=== PATIENT | male | born 1950 | race Two or more races ===

== ENCOUNTER 2017-11-22 13:12 | Inpatient (IN) | payer OTHER, MEDICAID ==
[~2017-11-22] VITALS: Ht 172.7 cm; Wt 96.2 kg
[~2017-11-22 13:12] MED LIST: LEVO500T75 PO; TAMS-12 PO
--- NOTE | 2017-11-22 13:15 | NUR ---
AAOX3, [id number] FROM HOME,NEIGHBOR CALLED 911. PT WAS FOUND LYING IN THE BATHROOM UNKNOWN DOWNTIME C/O BILATERAL HIP,BILATERAL KNEE,RT ELBOW PAIN, LEFT ARM PAIN. RR IS EVEN AND UNLABORED WITH NAD NOTED. SKIN IS WARM AND DRY. AWAITING MD FOR EVAL.
[2017-11-22] MEDS ORDERED: CEFTRIAXONE 1GM BAG (ER ONLY) 1 GM/50 ML PIGGYBACK IV ONE (13:30)
[2017-11-22] MEDS ORDERED: IV NS 0.9% 1,000 ML BAG IV ONE (13:30)
[2017-11-22] MEDS ORDERED: ACETAMINOPHEN ES 500 MG TABLET ONE (13:47)
[2017-11-22 13:48] LABS: BASOPHILS # (AUTO) 0.7 /CMM (0.0-0.2); BASOPHILS % (AUTO) 4.3 % (0.0-2.0); HEMATOCRIT 50 % (39-51); HEMOGLOBIN 16.7 g/dL (13.5-17.5); LYMPHOCYTES # (AUTO) 0.8 /CMM (0.8-4.8); LYMPHOCYTES % (AUTO) 4.8 % (20.0-44.0); MEAN CORPUSCULAR HEMOGLOBIN 31 PG (26.0-33.0); MEAN CORPUSCULAR HGB CONC 33 g/dl (31.0-36.0); MEAN CORPUSCULAR VOLUME 94 fL (80-96); MONOCYTES # (AUTO) 1.5 /CMM (0.1-1.30); MONOCYTES % (AUTO) 8.8 % (2.0-12.0); NEUTROPHILS # (AUTO) 14.2 /CMM (1.8-8.9); NEUTROPHILS % (AUTO) 82.1 % (43.0-81.0); PLATELET COUNT (AUTO) 215 /CMM (150-450); RDW COEFFICIENT OF VARIATION 11.8 (11.5-15.0); RED BLOOD CELL COUNT(AUTO) 5.39 MIL/uL (4.5-6.0); WHITE BLOOD COUNT (AUTO) 17.2 K/uL (4.3-11.0)
[2017-11-22 13:54] LABS: ALCOHOL, BLOOD 3 mg/dL (0-0)
[2017-11-22 13:58] LABS: ALANINE AMINOTRANSFERASE 75 U/L (12-78); ALBUMIN 3.8 g/dL (3.4-5.0); ALKALINE PHOSPHATASE 74 U/L (46-116); ASPARTATE AMINOTRANSFERASE 188 U/L (15-37); BILIRUBIN,DIRECT 0.1 mg/dL (0.0-0.2); BILIRUBIN,TOTAL 0.7 mg/dL (0.2-1.0); CALCIUM, SERUM 8.8 mg/dL (8.5-10.1); CARBON DIOXIDE 19 mmol/L (21-32); CHLORIDE 103 mmol/L (98-107); CREATININE 1.5 mg/dL (0.6-1.3); POTASSIUM 5.3 mmol/L (3.5-5.1); SODIUM SERUM 138 mmol/L (136-145); TOTAL PROTEIN, SERUM 7.6 g/dL (6.4-8.2); UREA NITROGEN, BLOOD 34 mg/dL (7-18)
--- NOTE | 2017-11-22 13:58 | NUR ---
PATIENT TRANSPORTED FOR CT VIA GURNEY.
[2017-11-22 14:00] LABS: GLUCOSE 461 mg/dL (74-106)
[2017-11-22 14:00] LABS: INR 0.88 (0.85-1.15)
[2017-11-22] MEDS ORDERED: ACETAMINOPHEN ES 500 MG TABLET PO ONE (14:00)
[2017-11-22] MEDS ORDERED: CEFTRIAXONE 1 G in IV NS 0.9% 50 ML IV ONE (14:00)
[2017-11-22 14:01] LABS: TROPONIN I < 0.017 ng/mL (0.00-0.056)
[2017-11-22 14:14] LABS: BAND % (MANUAL) 1 % (0.0-5.0); LYMPHOCYTES % (MANUAL) 2 % (16-48); MONOCYTES % (MANUAL) 6 % (0-11.0); NEUTROPHILS % (MANUAL) 91 (42-76)
[2017-11-22] MEDS ORDERED: GLIM4TAB2 PO (14:24)
[2017-11-22] MEDS ORDERED: ATOR20TA PO (14:24)
[2017-11-22] MEDS ORDERED: METF500T6 PO (14:24)
[2017-11-22] MEDS ORDERED: LOSA50TA21 PO (14:24)
[2017-11-22] MEDS ORDERED: METO-357 PO (14:24)
[2017-11-22] MEDS ORDERED: INSULIN REGULAR, HUMAN 100 UNIT/ML 10 ML VIAL ONE (14:25)
[2017-11-22] MEDS ORDERED: PROPOFOL 20 ML IV ONE (14:29)
[2017-11-22] MEDS ORDERED: INSULIN REGULAR, HUMAN 100 UNIT/ML 10 ML VIAL IV ONE (14:30)
[2017-11-22] MEDS ORDERED: PROPOFOL 200 MG/20 ML VIAL IV ONE (14:30)
--- NOTE | 2017-11-22 14:49 | NUR ---
XRAY- POST REDUCTION AT BS.
--- NOTE | 2017-11-22 14:53 | NUR ---
ROCEPHIN 1G --- DUPLICATE ORDER
[2017-11-22 15:00] LABS: APPEARANCE,URINE SL CLOUDY (CLEAR); BILIRUBIN,URINE NEGATIVE (NEGATIVE); BLOOD, URINE 3+ Ery/uL (NEGATIVE); COLOR,URINE DARK YELLO (YELLOW); KETONES,URINE 1+ (NEGATIVE); LEUKOCYTE ESTERASE ,URINE NEGATIVE (NEGATIVE); NITRITE, URINE NEGATIVE (NEGATIVE); PH,URINE 5.5 (5.0-8.0); PROTEIN,URINE 2+ mg/dl (NEGATIVE); UGLUCOSE 3+ mg/dL (NEGATIVE); UROBILINOGEN,URINE 0.2 EU/dL (0.2)
--- NOTE | 2017-11-22 15:10 | NUR ---
PAGED Jesus NGUYEN , AWAITING CALL BACK.
[2017-11-22] MEDS ORDERED: ONDANSETRON HCL/PF 4 MG/2 ML VIAL ONE (15:16)
[2017-11-22] MEDS ORDERED: PANTOPRAZOLE 40 MG VIAL ONE (15:16)
--- NOTE | 2017-11-22 15:28 | NUR ---
CALLED NURSING WAREHOUSE DRIVER AND REQUESTED A CHANTAL BED FOR THIS PT.
[2017-11-22] MEDS ORDERED: PANTOPRAZOLE 40 MG VIAL IV ONE (15:30)
[2017-11-22] MEDS ORDERED: ONDANSETRON HCL/PF - ER 4 MG/2 ML VIAL IV ONE (15:30)
[2017-11-22 15:33] LABS: BACTERIA,URINE None seen /HPF (None Seen); SQUAMOUS EPITHELIAL CELL,UR Few /HPF (None Seen); URINE AMORPHOUS URATE Many /HPF (None Seen); WBC,URINE 0-2 /HPF (0-3)
--- NOTE | 2017-11-22 15:51 | NUR ---
PT IS ASSIGNED TO CHANTAL RM#: [id number], DX: ENCEPHALOPATHY, LEFT HIP DISLOCATION, RENAL FAILURE, AND ACCEPTING MD: DR ANN.
--- NOTE | 2017-11-22 16:52 | NUR ---
REPORT GIVEN TO ISHAN ARELLANO FOR [facility] CHANTAL [id number]
[2017-11-22 17:25] VITALS: BP 155/83
--- NOTE | 2017-11-22 17:25 | NUR ---
RN NOTES RECEIVED PT FROM ER , A/OX4, ON 2L O2 N/C , RESPIRATION EVEN AND UNLABORED, NO SOB NOTED, ON TELE HR IN 100'S, ST , TANVI DRINING TO GRAVITY , L AC AND R FA G 18 IV SITES CLEAN , DRY INTACT. DR ANN PAGED AND NOTIFED REGARDING ADMISSION ORDERS. R AND L KNEE ABRASIONS NOTED, PT HAS LEFT BIG TOE WOUND , WOUND CONSULT ORDERED , SR UP x3, CALL LIGHT WITHIN EASY REACH, BED LOCKED AND IN LOWEST POSITION , CONTINUE TO MONITOR PT CLSOELY .
[2017-11-22 17:30] VITALS: BP 155/83
[2017-11-22] MEDS ORDERED: HYDROCODONE/APAP 5/325MG 1 EACH TABLET PO PRN (18:30)
--- NOTE | 2017-11-22 18:30 | NUR ---
RN NOTES LA=3.7 , DR ANN NOTIFED ,
[2017-11-22 18:36] LABS: CREATINE KINASE, TOTAL 36262 U/L (39-308)
[2017-11-22] MEDS ORDERED: FEE PK DOSING 1 MIN EA MC ONE (18:38)
[2017-11-22] MEDS ORDERED: ONDANSETRON HCL/PF 4 MG/2 ML VIAL IVP PRN (19:00)
[2017-11-22] MEDS ORDERED: ACETAMINOPHEN 325 MG TABLET PO PRN (19:00)
[2017-11-22] MEDS ORDERED: DEXTROSE 50%-WATER 50 ML DISP.SYRIN IV PRN (19:00)
[2017-11-22] MEDS ORDERED: VANCOMYCIN 1 GM in IV D5W 250 ML IV ONE (19:00)
[2017-11-22] MEDS ORDERED: LORAZEPAM INJ 2 MG/ML VIAL IVP PRN (19:00)
--- NOTE | 2017-11-22 19:00 | NUR ---
RN INITIAL NOTES RECEIVED THE PATIENT AWAKE ON BED, A/O X3. ON ROOM AIR, NO S/S OF RESP DISTRESS, SATURATING WELL. COMPLAINTS OF GENERALIZED ACHING PAIN, 9. PT IS SR/ST ON THE MONITOR, HR 100'S. TINAJERO CATH IN PLACE. LEFT AC 18G AND RIGHT FOREARM 18G, BOTH FLUSHED AND PATENT, NO S/S OF INFILTRATION/INFECTION, DRESSINGS CDI. WILL START ON IVF PER MD ORDER. BED LOW AND LOCKED, SIDERAILS UP, CALL LIGHT WITHIN REACH. WILL MONITOR
[2017-11-22] MEDS: IV NS 0.9% 1,000 ML IV PRN (19:32)
[2017-11-22] MEDS: MORPHINE SULFATE INJ 2 MG/ML DISP.SYRIN IV PRN ×2 (19:34→23:59)
[2017-11-22 20:00] VITALS: BP 124/83
[2017-11-22] MEDS: BLOOD SUGAR DIAGNOSTIC 1 EACH STRIP VI SCH (21:21)
[2017-11-22] MEDS: *INSULIN REGULAR(HUMULIN R)HUM 100 UNIT/ML VIAL SQ PRN (21:24)
[2017-11-23] VITALS: BP 112/78
[2017-11-23 04:00] VITALS: BP 127/73
[2017-11-23] MEDS: MORPHINE SULFATE INJ 2 MG/ML DISP.SYRIN IV PRN ×4 (04:04→21:54)
[2017-11-23 06:25] LABS: BASOPHILS % (AUTO) 0.2 % (0.0-2.0); EOSINOPHILS % (AUTO) 0.1 % (0.0-6.0); HEMATOCRIT 44 % (39-51); LYMPHOCYTES % (AUTO) 9.6 % (20.0-44.0); MEAN CORPUSCULAR HEMOGLOBIN 33 PG (26.0-33.0); MEAN CORPUSCULAR HGB CONC 34 g/dl (31.0-36.0); MEAN CORPUSCULAR VOLUME 95 fL (80-96); MONOCYTES # (AUTO) 1.1 /CMM (0.1-1.30); MONOCYTES % (AUTO) 10.3 % (2.0-12.0); NEUTROPHILS # (AUTO) 8.3 /CMM (1.8-8.9); NEUTROPHILS % (AUTO) 79.8 % (43.0-81.0); PLATELET COUNT (AUTO) 164 /CMM (150-450); RED BLOOD CELL COUNT(AUTO) 4.59 MIL/uL (4.5-6.0); WHITE BLOOD COUNT (AUTO) 10.4 K/uL (4.3-11.0)
[2017-11-23] MEDS: INSULIN REGULAR, HUMAN 100 UNIT/ML 3 ML VIAL SQ PRN ×4 (06:35→21:59)
[2017-11-23] MEDS: BLOOD SUGAR DIAGNOSTIC 1 EACH STRIP VI SCH ×4 (06:35→21:54)
--- NOTE | 2017-11-23 06:40 | NUR ---
RN CLOSING NOTES PT REMAINS STABLE OF THE MOMENT. ALL DUE MEDS GIVEN, AM CARE PROVIDED. WILL ENDORSE SHYANN TO AM RN
[2017-11-23 06:51] LABS: ALBUMIN 2.7 g/dL (3.4-5.0); BILIRUBIN,TOTAL 0.9 mg/dL (0.2-1.0); CALCIUM, SERUM 7.3 mg/dL (8.5-10.1); CREATININE 1.1 mg/dL (0.6-1.3); MAGNESIUM 2.9 mg/dL (1.8-2.4); PHOSPHORUS 3.7 mg/dL (2.5-4.9); TOTAL PROTEIN, SERUM 6.1 g/dL (6.4-8.2)
--- NOTE | 2017-11-23 07:00 | NUR ---
RN NOTES RECEIVED PATIENT ON BED, A/O X3. ON ROOM AIR, NO DISTRESS NOTED , ON TELE SR , HR IN 90's, TINAJERO CATH IN PLACE AND DRINING TO GRAVITY , LEFT AC IV G 18 AND RIGHT FOREARM G 18 SITES CLEAN AND DRY AND INTACT, SR UP x3, CALL LIGHT WITHIN EASY REACH, BED LOCKED AND IN LOWEST POSITION, CONTINUE TO MONITOR .
[2017-11-23 08:00] VITALS: BP 122/84
[2017-11-23] MEDS ORDERED: VANCOMYCIN 0.75 GM in IV D5W 250 ML IV SCH (08:00)
[2017-11-23] MEDS: LOSARTAN POTASSIUM 50 MG TABLET PO SCH ×2 (08:35→16:21)
[2017-11-23] MEDS: PANTOPRAZOLE 40 MG TABLET.DR PO SCH (08:35)
[2017-11-23] MEDS: CHLORDIAZEPOXIDE HCL 25 MG CAPSULE PO SCH ×2 (08:36→16:22)
[2017-11-23] MEDS: GLIMEPIRIDE 4 MG TABLET PO SCH ×2 (08:36→16:20)
[2017-11-23] MEDS: METOPROLOL SUCCINATE 50 MG TAB.SR.24H PO SCH (08:36)
[2017-11-23] MEDS: IV NS 0.9% 1,000 ML IV PRN ×2 (08:44→18:13)
--- NOTE | 2017-11-23 12:00 | NUR ---
RN NOTES PT WANT TO STAY ON HIS BACK , REFUSED TO TURN ,
[2017-11-23] MEDS: INSULIN DETEMIR 100 UNIT/ML CARTRIDGE SQ SCH ×2 (13:09→21:58)
[2017-11-23 16:00] VITALS: BP 107/65
[2017-11-23] MEDS: LACTOBACILLUS RHAMNOSUS GG 1 EACH CAP.SPRINK PO SCH (16:21)
[2017-11-23] MEDS: PIPERACILLIN /TAZOBACTAM 3.375 G in IV D5W 50 ML IV SCH ×2 (17:12→23:26)
--- NOTE | 2017-11-23 17:31 | NUR ---
Patient lives alone at home. The patient does not smoke, but stated he drinks alcohol everyday. He was ambulatory and independent with adl's prior to admit. Has a walker that he utilized for mobility asa needed. Reported has been falling at home. Current plan is SNF vs Home. Will discuss with MD. Addendum: 11/23/17 at 1733 by YOLETTE TA RN Amended: Links added.
--- NOTE | 2017-11-23 18:00 | NUR ---
RN NOTES PT STABLE , NO DISTRESS NOTED, WILL ENDOSE TO ROLLER MILL TENDER NURSE FOR CONTINUITY OF CARE .
[2017-11-23] MEDS ORDERED: PIPERACILLIN /TAZOBACTAM 3.375 G in IV D5W 50 ML IV SCH (18:44)
[2017-11-23 20:00] VITALS: BP 86/55
[2017-11-23 20:30] VITALS: BP 94/54
[2017-11-23] MEDS: VANCOMYCIN 1 GM in IV D5W 250 ML IV SCH (21:03)
[2017-11-23] MEDS: ATORVASTATIN 10 MG TABLET PO SCH (21:53)
[2017-11-24] MEDS: MORPHINE SULFATE INJ 2 MG/ML DISP.SYRIN IV PRN ×4 (02:05→21:17)
[2017-11-24] MEDS: IV NS 0.9% 1,000 ML IV PRN ×2 (02:09→15:40)
[2017-11-24 04:00] VITALS: BP 94/48
[2017-11-24] MEDS: PIPERACILLIN /TAZOBACTAM 3.375 G in IV D5W 50 ML IV SCH ×2 (05:03→12:03)
--- NOTE | 2017-11-24 07:30 | NUR ---
ACCOUNT COORDINATOR NOTES RECEIVED PATIENT AWAKE IN BED, AOX3, NO SIGNS OF DISTRESS, FC TO GRAVITY, IV R FA 18G 150 ML/HR, IV L AC 18G, CLEAN AND PATENT, BED IN LOW AND LOCEKD POSITION CALL LIGHT WITHIN REACH, WILL CONTINUE TO MONITOR.
[2017-11-24 07:40] LABS: BASOPHILS % (AUTO) 0.3 % (0.0-2.0); EOSINOPHILS % (AUTO) 0.8 % (0.0-6.0); HEMATOCRIT 36 % (39-51); HEMOGLOBIN 12.4 g/dL (13.5-17.5); LYMPHOCYTES # (AUTO) 1.5 /CMM (0.8-4.8); LYMPHOCYTES % (AUTO) 14.2 % (20.0-44.0); MEAN CORPUSCULAR HEMOGLOBIN 33 PG (26.0-33.0); MEAN CORPUSCULAR HGB CONC 35 g/dl (31.0-36.0); MEAN CORPUSCULAR VOLUME 96 fL (80-96); MONOCYTES # (AUTO) 1.1 /CMM (0.1-1.30); MONOCYTES % (AUTO) 10.7 % (2.0-12.0); NEUTROPHILS # (AUTO) 7.9 /CMM (1.8-8.9); PLATELET COUNT (AUTO) 122 /CMM (150-450); RDW COEFFICIENT OF VARIATION 13.1 (11.5-15.0); RED BLOOD CELL COUNT(AUTO) 3.72 MIL/uL (4.5-6.0); WHITE BLOOD COUNT (AUTO) 10.7 K/uL (4.3-11.0)
[2017-11-24 07:53] LABS: CALCIUM, SERUM 7.3 mg/dL (8.5-10.1); CREATININE 1.2 mg/dL (0.6-1.3); MAGNESIUM 2.8 mg/dL (1.8-2.4); POTASSIUM 3.7 mmol/L (3.5-5.1)
[2017-11-24 08:00] VITALS: BP 113/68
[2017-11-24] MEDS: BLOOD SUGAR DIAGNOSTIC 1 EACH STRIP VI SCH ×4 (08:11→21:17)
[2017-11-24] MEDS: VANCOMYCIN 1 GM in IV D5W 250 ML IV SCH (08:39)
--- NOTE | 2017-11-24 09:26 | NUR ---
WOUND CARE CONSULT: PT PRESENTS WITH LEFT THIGH EDEMA WITH SLIGHT REDNESS TO LEFT ANTERIOR THIGH, LEFT KNEE ABRASION, RT KNEE ABRASION AND LOOSENED NAIL TO LEFT GREAT TOE, PRESENT ON ADMISSION. DEFER TO MD FOR LEFT THIGH EDEMA. PT STATES LEFT HIP SURGERY IN MARCH. SURGICAL SCAR NOTED TO LEFT HIP. RECOMMENDATIONS MADE FOR WOUND CARE AND SKIN PROTECTION. DISCUSSED WITH NURSING STAFF. RECOMMEND DPM CONSULT. PT ON LOYD ISOFLEX LOW AIRLOSS BED. ALL SKIN PROTECTION MEASURES IN PLACE. CURRENT REBEKAH SCORE IS 18. WILL SEE PRKeith Boyd IN AGREEMENT WITH PLAN OF CARE. Addendum: 11/24/17 at 0929 by KATHARINA JACOBS WNDNU Amended: Links added.
[2017-11-24] MEDS ORDERED: Z GUARD REMEDY 2 OZ OINT TP PRN (09:30)
[2017-11-24] MEDS: PANTOPRAZOLE 40 MG TABLET.DR PO SCH (09:32)
[2017-11-24] MEDS: LACTOBACILLUS RHAMNOSUS GG 1 EACH CAP.SPRINK PO SCH ×2 (09:32→17:29)
[2017-11-24] MEDS: GLIMEPIRIDE 4 MG TABLET PO SCH ×2 (09:32→17:29)
[2017-11-24] MEDS: LOSARTAN POTASSIUM 50 MG TABLET PO SCH ×2 (09:33→17:00)
[2017-11-24] MEDS: METOPROLOL SUCCINATE 50 MG TAB.SR.24H PO SCH (09:33)
[2017-11-24] MEDS: CHLORDIAZEPOXIDE HCL 25 MG CAPSULE PO SCH ×2 (09:33→17:29)
[2017-11-24 10:15] LABS: CREATINE KINASE MB 30.1 ng/mL (0-3.6)
[2017-11-24] MEDS: INSULIN REGULAR, HUMAN 100 UNIT/ML 3 ML VIAL SQ PRN ×2 (12:06→17:22)
[2017-11-24 16:00] VITALS: BP 99/52
[2017-11-24] MEDS: SILVER SULFADIAZINE CREAM 25 GM TUBE TP SCH (17:30)
--- NOTE | 2017-11-24 19:00 | NUR ---
MED SURG END NOTES PATIENT RESTING IN BED, NO SIGNS OF DISTRESS, ALL NEEDS ADDRESSED, WILL ENDORSE TO HIV PREVENTION SPECIALIST FOR CONTINUITY OF CARE.
--- NOTE | 2017-11-24 19:30 | NUR ---
MS RN NOTE PT RECEIVED AWAKE AND RESTING IN BED. A/O X3-4 AND ABLE TO VERBALIZE NEEDS. ON ROOM AIR AND SATURATING WELL. NO ACUTE DISTRESS NOTED. TINAJERO CATHETER IN PLACE AND DRAINING BY GRAVITY. CALL LIGHT WITHIN REACH. WILL MONITOR.
[2017-11-24 20:00] VITALS: BP 127/67
[2017-11-24] MEDS: ATORVASTATIN 10 MG TABLET PO SCH (21:20)
--- NOTE | 2017-11-24 21:45 | NUR ---
RN NOTES RECEIVED PATIENT FROM [facility]. PATIENT AWAKE, AO X 3, ABLE TO MAKE NEEDS KNOWN. NO ACUTE DISTRESS NOTED. DENIES PAIN AT THIS TIME. IV SITE PATENT, INTACT; FLUSHED. TINAJERO CATH PATENT, INTACT; DRAINING CLEAR YELLOW URINE. SAFETY REMINDERS GIVEN. ON LOW BED WITH BILATERAL UPPER SIDE RAILS UP. CALL ROSALES WITHIN EASY REACH. WILL CONTINUE TO MONITOR.
--- NOTE | 2017-11-24 21:46 | NUR ---
MS RN NOTE PT TRANSFERRED SAFELY TO ROOM 204-1. GAVE REPORT TO RV RN. EMPTIED TINAJERO CATHETER 1400 ML. GAVE MORPHINE 1ML IVP FOR GENERALIZED 8/10 PAIN.
[2017-11-24 22:00] VITALS: BP 104/64
[2017-11-24] MEDS: INSULIN DETEMIR 100 UNIT/ML CARTRIDGE SQ SCH (22:20)
[2017-11-24] MEDS: *INSULIN REGULAR(HUMULIN R)HUM 100 UNIT/ML VIAL SQ PRN (22:23)
[2017-11-25] MEDS: IV NS 0.9% 1,000 ML IV PRN ×2 (02:22→12:35)
[2017-11-25] MEDS: MORPHINE SULFATE INJ 2 MG/ML DISP.SYRIN IV PRN ×4 (02:24→21:05)
--- NOTE | 2017-11-25 06:00 | NUR ---
RN NOTES PATIENT IN BED ASLEEP, EASILY AROUSABLE. RESPIRATIONS EVEN. NO SIGNS OF PAIN NOTED. DUE MEDS GIVEN WITH NO ASE NOTED. NEEDS ATTENDED. KEPT CLEAN, DRY, COMFORTABLE. SAFETY PRECAUTIONS AND COMFORT MEASURES IN PLACE. WILL GIVE REPORT TO DAY SHIFT FOR CONTINUITY OF CARE.
[2017-11-25 06:38] LABS: CALCIUM, SERUM 7.6 mg/dL (8.5-10.1); CREATININE 0.9 mg/dL (0.6-1.3); POTASSIUM 4.1 mmol/L (3.5-5.1)
[2017-11-25] MEDS: BLOOD SUGAR DIAGNOSTIC 1 EACH STRIP VI SCH ×4 (06:39→21:54)
[2017-11-25] MEDS: PANTOPRAZOLE 40 MG TABLET.DR PO SCH (06:41)
[2017-11-25] MEDS: INSULIN REGULAR, HUMAN 100 UNIT/ML 3 ML VIAL SQ PRN ×3 (06:41→17:55)
--- NOTE | 2017-11-25 07:15 | NUR ---
RN NOTES PT IS SITTING UP IN BED AWAKE AND RESTING COMFORTABLY. PT ON RA, RESPIRATIONS ARE EVEN AND UNLABORED. IV ON RFA INTACT AND RUNNING NS @ 100ML/HR. TINAJERO CATHETER IS IN PLACE AND DRAINING TO GRAVITY. NO SIGNS OF DISTRESS NOTED. SAFETY MEASURES ARE IN PLACE,CALL LIGHT IS IN REACH. WILL CONTINUE TO MONITOR.
[2017-11-25 08:02] VITALS: BP 134/70
[2017-11-25] MEDS: LACTOBACILLUS RHAMNOSUS GG 1 EACH CAP.SPRINK PO SCH ×2 (08:31→16:26)
[2017-11-25] MEDS: CHLORDIAZEPOXIDE HCL 25 MG CAPSULE PO SCH ×2 (08:31→16:26)
[2017-11-25] MEDS: LOSARTAN POTASSIUM 50 MG TABLET PO SCH ×2 (08:31→16:26)
[2017-11-25] MEDS: GLIMEPIRIDE 4 MG TABLET PO SCH ×2 (08:31→16:26)
[2017-11-25] MEDS: METOPROLOL SUCCINATE 50 MG TAB.SR.24H PO SCH (08:31)
[2017-11-25] MEDS: SILVER SULFADIAZINE CREAM 25 GM TUBE TP SCH ×2 (08:32→16:27)
[2017-11-25 15:56] VITALS: BP 109/62
--- NOTE | 2017-11-25 18:00 | NUR ---
RN NOTES PTS TINAJERO CATHETER REMOVED, NOT NECESSARY ANY LONGER PER DR. ANN. WILL CONTINUE TO MONITOR FOR URINARY OUTPUT AND ENDORSE TO PRIMARY CLINICIAN RN TO MONITOR FOR RETENTION.
--- NOTE | 2017-11-25 18:55 | NUR ---
RN NOTES PT IS SITTING UP IN BED, RESTING COMFORTABLY. PT ON RA, RESPIRATIONS ARE EVEN AND UNLABORED. IV ON RFA INTACT AND RUNNING NS @ 100ML/HR. ALL MEDS WERE GIVEN ORDERED AND PT NEEDS MET. NO SIGNS OF DISTRESS NOTED. SAFETY MEASURES ARE IN PLACE, CALL LIGHT IS IN REACH. WILL ENDORSE TO OSTEOLOGIST RN FOR CONTINUITY OF CARE.
--- NOTE | 2017-11-25 19:45 | NUR ---
MS RN NOTES RECEIVED RESTING COMFORTABLY ON BED, A/O X3,BREATHING REGULAR,NOT IN ANY FORM OF DISTRESS.BILATERAL KNEE WITH DRESSING INTACT AND DRY.NS AT 100ML/HR RATE IN PROGRESS ON RFA VIA IV PUMP,SITE PATENT..DENIES PAIN AT THE MOMENT.CALL LIGHT IN REACH,NEEDS ANTICIPATED.
[2017-11-25 20:00] VITALS: BP 120/69
--- NOTE | 2017-11-25 20:25 | NUR ---
MS RN NOTES TRANSFERRED TO [facility] BY BED,REPORT GIVEN TO JOSUE BUCK FOR SHYANN.
--- NOTE | 2017-11-25 20:40 | NUR ---
MS/CONTROL PANEL BUILDER; RECEIVED PT FROM MS-2 BY BED ACCOMPANIED BY PK, RN AND OPERATIONAL REVIEW SERGEANT. PT IS AWAKE, ALERT AND ORIENTED. PT WITH DRESSINGS INTACT TO BOTH KNEES AND LT FOOT BIG TOE. LT FOOT ELEVATED WITH PILLOW. HL INTACT ON RFA AND LAC. AT THIS TIME ALSO PT C/O PAIN BOTH KNEES, LT FOOT AND RT ARM AND WANTS PAIN SHOT. PT SAID PAIN LEVEL IS 9 OUT OF 10. I TOLD THE PT I WILL CHECK THE ORDER AND I WILL TELL THE RN TO GIVE THE PAIN SHOT. BED ON LOWER POSITION AND LOCKED FOR SAFETY. SIDE RAILS ARE UP FFOR SAFETY. CONTINUE TO MONITOR. CALL LIGHT WITHIN REACH.
--- NOTE | 2017-11-25 20:45 | NUR ---
MS/DISTRIBUTION SYSTEMS SERVICEPERSON; I TOLD RAVINDER , RN WHO IS COVERING ME FOR IV PAIN SHOT THAT PT WANTS PAIN SHOT. I WENT BACK TO THE PT AFTER TELLING THE RN AND INFORMED THE PT THAT THE RN IS COMING FOR THE PAIN SHOT. AT THIS TIME ALSO PT VOIDED , USED URINAL 200 ML CLEAR YELLOW URINE. WANTS WASH CLOTH AND COLD WATER TO DRINK FEED MIXER INFORMED AND GIVEN.
--- NOTE | 2017-11-25 21:05 | NUR ---
MS/DATA COORDINATOR; I CHECK THE PT AGAIN IF HE GETS THE PAIN SHOT AND SAID NOT YET. SO I TOLD AGAIN THE RN ABOUT THE PAIN. I TOLD THE PT AGAIN THAT THE RN IS COMING FOR THE PAIN SHOT.
--- NOTE | 2017-11-25 21:55 | NUR ---
MS/INSTANT PRINTER OPERATOR; I CHECKED THE PT AND PT IS SLEEPING. BREATHING NON LABORED. THE RN SAID I GAVE THE PT PAIN SHOT ALREADY.
--- NOTE | 2017-11-25 22:00 | NUR ---
MS/MUSIC ENGRAVER; I WOKE UP THE PT FOR BS DONE RESULT 225 COVERAGE GIVEN. PT VOIDED 200 ML CLEAR YELLOW URINE. PT ASKED FOR WASH CLOTH AND WATER TO DRINK ALL GIVEN. IVF RESUMED. WANTS LIGHTS OFF DONE AND CALL LIGHT WITHIN REACH.
[2017-11-25] MEDS: *INSULIN REGULAR(HUMULIN R)HUM 100 UNIT/ML VIAL SQ PRN (22:11)
[2017-11-25] MEDS: INSULIN DETEMIR 100 UNIT/ML CARTRIDGE SQ SCH (22:18)
[2017-11-25] MEDS: ATORVASTATIN 10 MG TABLET PO SCH (22:21)
[2017-11-26] MEDS: IV NS 0.9% 1,000 ML IV PRN ×2 (00:42→12:08)
[2017-11-26] MEDS: MORPHINE SULFATE INJ 2 MG/ML DISP.SYRIN IV PRN ×3 (05:13→19:53)
--- NOTE | 2017-11-26 06:00 | NUR ---
MS/FURNITURE MANAGER; BS 137 COVERED WITH REGULAR INSULIN 2 UNITS SQ.
[2017-11-26] MEDS: BLOOD SUGAR DIAGNOSTIC 1 EACH STRIP VI SCH ×4 (06:07→21:55)
[2017-11-26] MEDS: INSULIN REGULAR, HUMAN 100 UNIT/ML 3 ML VIAL SQ PRN ×3 (06:11→17:24)
--- NOTE | 2017-11-26 06:38 | NUR ---
MS/MASTER CERTIFIED RV TECHNICIAN; SLEPT FAIRLY. IVF ON PROGRESS. KEPT CLEAN AND DRY. WILL ENDORSE IT TO THE DAY SHIFT NURSE FOR CONTINUITY OF CARE.
--- NOTE | 2017-11-26 07:05 | NUR ---
MS RN NOTES PATIENT IN BED EYES CLOSED, EASILY AROUSABLE, VERBALLY RESPONSIVE. NO ACUTE DISTRESS NOTED. BREATHING UNLABORED, NO SOB NOTED. IV ACCESS PATENT AND INTACT, NO REDNESS OR SWELLING NOTED. SAFETY MEASURES IN PLACE. CALL LIGHT WITHIN REACH.
[2017-11-26 07:42] LABS: EOSINOPHILS % (AUTO) 3.1 % (0.0-6.0); HEMATOCRIT 38 % (39-51); HEMOGLOBIN 12.8 g/dL (13.5-17.5); LYMPHOCYTES # (AUTO) 1.1 /CMM (0.8-4.8); LYMPHOCYTES % (AUTO) 15.7 % (20.0-44.0); MEAN CORPUSCULAR HEMOGLOBIN 33 PG (26.0-33.0); MEAN CORPUSCULAR HGB CONC 34 g/dl (31.0-36.0); MEAN CORPUSCULAR VOLUME 96 fL (80-96); MONOCYTES # (AUTO) 0.8 /CMM (0.1-1.30); MONOCYTES % (AUTO) 10.6 % (2.0-12.0); NEUTROPHILS # (AUTO) 5.1 /CMM (1.8-8.9); NEUTROPHILS % (AUTO) 70.6 % (43.0-81.0); PLATELET COUNT (AUTO) 161 /CMM (150-450); RDW COEFFICIENT OF VARIATION 12.7 (11.5-15.0); RED BLOOD CELL COUNT(AUTO) 3.93 MIL/uL (4.5-6.0); WHITE BLOOD COUNT (AUTO) 7.3 K/uL (4.3-11.0)
[2017-11-26 08:00] VITALS: BP 141/60
[2017-11-26 08:02] LABS: CALCIUM, SERUM 7.8 mg/dL (8.5-10.1); CREATININE 0.8 mg/dL (0.6-1.3); MAGNESIUM 2.5 mg/dL (1.8-2.4); POTASSIUM 3.9 mmol/L (3.5-5.1)
--- NOTE | 2017-11-26 08:17 | NUR ---
MS RN NOTES SEEN AND EVALUATED BY DR ANN WITH NEW ORDERS MADE , NOTED AND CARRIED OUT.
[2017-11-26] MEDS: PANTOPRAZOLE 40 MG TABLET.DR PO SCH (08:28)
[2017-11-26] MEDS: LACTOBACILLUS RHAMNOSUS GG 1 EACH CAP.SPRINK PO SCH ×2 (08:44→17:22)
[2017-11-26] MEDS: LOSARTAN POTASSIUM 50 MG TABLET PO SCH ×2 (08:44→17:00)
[2017-11-26] MEDS: GLIMEPIRIDE 4 MG TABLET PO SCH ×2 (08:44→17:22)
[2017-11-26] MEDS: METOPROLOL SUCCINATE 50 MG TAB.SR.24H PO SCH (08:45)
[2017-11-26] MEDS: SILVER SULFADIAZINE CREAM 25 GM TUBE TP SCH ×2 (08:46→17:23)
[2017-11-26 09:10] LABS: CREATINE KINASE MB 8.4 ng/mL (0-3.6)
--- NOTE | 2017-11-26 12:00 | NUR ---
MS RN NOTES SEEN AND EVALUATED BY DR BLUNT, CLEAN AND DRESSING CHANGED ON LEFT BIG TOE. PATIENT TOLERATED WELL.
[2017-11-26 16:00] VITALS: BP 108/50
--- NOTE | 2017-11-26 19:00 | NUR ---
MS RN NOTES PATIENT IN BED ALERT ORIENTED X 4. NO ACUTE DISTRESS NOTED. BREATHING UNLABORED, NO SOB NOTED. IV ACCESS PATENT AND INTACT, NO REDNESS OR SWELLING NOTED. DUE MEDICATIONS GIVEN, NO ASE NOTED. NEEDS ATTENDED AND ANTICIPATED. KEPT CLEAN, DRY AND COMFORTABLE. SAFETY MEASURES IN PLACE. CALL LIGHT WITHIN REACH. ENDORSED TO NIGHT NURSE FOR CONTINUITY OF CARE.
--- NOTE | 2017-11-26 19:10 | NUR ---
RN OPENING NOTES RECEIVED PT ASLEEP IN BED BUT EASILY AROUSABLE, ALERT AND ORIENTED X 4, NO SOB NOTED, IN NO ACUTE DISTRESS AND DENIES PAIN AT THIS TIME. PLACED CALL LIGHT WITHIN EASY REACH, BED IN LOW POSITION AND LOCKED IN PLACE. WILL CONTINUE TO MONITOR.
[2017-11-26 20:00] VITALS: BP 124/66
--- NOTE | 2017-11-26 20:47 | NUR ---
RN NOTES RELAYED LEFT KNEE X-RAY RESULT TO DR. ANN WITH NEW ORDER FOR CT WO CONTRAST IN THE AM. ALL ORDERS NOTED AND CARRIED OUT.
[2017-11-26] MEDS: ATORVASTATIN 10 MG TABLET PO SCH (21:55)
[2017-11-26] MEDS: *INSULIN REGULAR(HUMULIN R)HUM 100 UNIT/ML VIAL SQ PRN (22:00)
[2017-11-26] MEDS: INSULIN DETEMIR 100 UNIT/ML CARTRIDGE SQ SCH (22:00)
[2017-11-27] MEDS: MORPHINE SULFATE INJ 2 MG/ML DISP.SYRIN IV PRN ×3 (02:55→20:15)
[2017-11-27] MEDS: IV NS 0.9% 1,000 ML IV PRN ×2 (05:10→17:28)
[2017-11-27] MEDS: INSULIN REGULAR, HUMAN 100 UNIT/ML 3 ML VIAL SQ PRN ×3 (06:44→17:31)
[2017-11-27] MEDS: BLOOD SUGAR DIAGNOSTIC 1 EACH STRIP VI SCH ×4 (06:46→21:54)
[2017-11-27] MEDS: PANTOPRAZOLE 40 MG TABLET.DR PO SCH (06:46)
--- NOTE | 2017-11-27 06:50 | NUR ---
RN CLOSING NOTES PATIENT IN BED, ALERT AND ORIENTED X 4, NO SOB, BREATHING EVEN AND UNLABORED, IN NO ACUTE DISTRESS. PT'S NEEDS ATTENDED TO THROUGHOUT THE SHIFT, TURNED AND REPOSITIONED [id number] AND NEEDED. PT CONTINUES TO RECEIVE IVF ORDERED VIA IVP ON RFA. PLACED BED IN LOW POSITION AND LOCKED IN PLACE. KEPT PT SAFE AND DRY, CLEAN AND COMFORTABLE. CALL LIGHT WITHIN EASY REACH.WILL ENDORSE TO AM SHIFT NURSE FOR CONTINUITY OF CARE.
--- NOTE | 2017-11-27 07:05 | NUR ---
MS RN NOTES PATIENT IN BED ALERT ORIENTED X 4. NO ACUTE DISTRESS NOTED. BREATHING UNLABORED, NO SOB NOTED. IV ACCESS PATENT AND INTACT, NO REDNESS OR SWELLING NOTED. SAFETY MEASURES IN PLACE. CALL LIGHT WITHIN REACH. WILL CONTINUE TO MONITOR PATIENT.
[2017-11-27 08:00] VITALS: BP 130/77
[2017-11-27 08:01] LABS: BASOPHILS % (AUTO) 0.2 % (0.0-2.0); EOSINOPHILS % (AUTO) 3.7 % (0.0-6.0); HEMATOCRIT 36 % (39-51); HEMOGLOBIN 12.2 g/dL (13.5-17.5); LYMPHOCYTES # (AUTO) 1.1 /CMM (0.8-4.8); LYMPHOCYTES % (AUTO) 15.3 % (20.0-44.0); MEAN CORPUSCULAR HEMOGLOBIN 33 PG (26.0-33.0); MEAN CORPUSCULAR HGB CONC 34 g/dl (31.0-36.0); MEAN CORPUSCULAR VOLUME 96 fL (80-96); NEUTROPHILS % (AUTO) 67.8 % (43.0-81.0); PLATELET COUNT (AUTO) 182 /CMM (150-450); RDW COEFFICIENT OF VARIATION 12.6 (11.5-15.0); RED BLOOD CELL COUNT(AUTO) 3.72 MIL/uL (4.5-6.0); WHITE BLOOD COUNT (AUTO) 7.4 K/uL (4.3-11.0)
[2017-11-27 08:08] LABS: CALCIUM, SERUM 8.1 mg/dL (8.5-10.1); CREATININE 0.9 mg/dL (0.6-1.3); MAGNESIUM 2.3 mg/dL (1.8-2.4); POTASSIUM 3.9 mmol/L (3.5-5.1)
[2017-11-27] MEDS: GLIMEPIRIDE 4 MG TABLET PO SCH ×2 (09:03→17:29)
[2017-11-27] MEDS: LACTOBACILLUS RHAMNOSUS GG 1 EACH CAP.SPRINK PO SCH ×2 (09:03→17:29)
[2017-11-27] MEDS: METOPROLOL SUCCINATE 50 MG TAB.SR.24H PO SCH (09:03)
[2017-11-27] MEDS: LOSARTAN POTASSIUM 50 MG TABLET PO SCH ×2 (09:04→17:29)
[2017-11-27] MEDS: SILVER SULFADIAZINE CREAM 25 GM TUBE TP SCH ×2 (09:05→17:29)
[2017-11-27 09:27] LABS: CREATINE KINASE MB 5.8 ng/mL (0-3.6)
[2017-11-27 16:00] VITALS: BP 117/66
--- NOTE | 2017-11-27 18:35 | NUR ---
MS RN NOTES PATIENT IN BED WATCHING TV ALERT ORIENTED X 4. NO ACUTE DISTRESS NOTED. BREATHING UNLABORED, NO SOB NOTED. IV ACCESS PATENT AND INTACT, NO REDNESS OR SWELLING NOTED. DUE MEDICATIONS GIVEN , NO ASE NOTED. NEEDS ATTENDED AND ANTICIPATED. KEPT CLEAN, DRY AND COMFORTABLE. SAFETY MEASURES IN PLACE. CALL LIGHT WITHIN REACH. WILL CONTINUE TO MONITOR PATIENT. WILL ENDORSE TO NIGHT NURSE FOR CONTINUITY OF CARE.
--- NOTE | 2017-11-27 19:05 | NUR ---
RN INITIAL NOTES Received patient sitting up in bed, alert, oriented x 4. Peripheral IV infusing at 100mL/hr. No complaints as of this time. Call silva within reach. Bed in low, locked position. Patient stable as endorsed by the AM shift RN. Will Continue to monitor
--- NOTE | 2017-11-27 19:41 | NUR ---
RN NOTES Patient went down for CT.
--- NOTE | 2017-11-27 19:59 | NUR ---
RN NOTES Patient came back from CT
[2017-11-27] MEDS: ATORVASTATIN 10 MG TABLET PO SCH (21:52)
[2017-11-27] MEDS: INSULIN DETEMIR 100 UNIT/ML CARTRIDGE SQ SCH (21:54)
[2017-11-27] MEDS: *INSULIN REGULAR(HUMULIN R)HUM 100 UNIT/ML VIAL SQ PRN (21:56)
[2017-11-28] MEDS: IV NS 0.9% 1,000 ML IV PRN (03:42)
[2017-11-28] MEDS: MORPHINE SULFATE INJ 2 MG/ML DISP.SYRIN IV PRN ×3 (03:57→15:18)
--- NOTE | 2017-11-28 03:58 | NUR ---
RN NOTES Patient complained of pain, generalized, pain scale of 8/10, morphine given as ordered
[2017-11-28 06:07] VITALS: BP 149/78
[2017-11-28] MEDS: BLOOD SUGAR DIAGNOSTIC 1 EACH STRIP VI SCH ×2 (06:30→12:12)
[2017-11-28] MEDS: INSULIN REGULAR, HUMAN 100 UNIT/ML 3 ML VIAL SQ PRN ×2 (06:31→15:17)
--- NOTE | 2017-11-28 06:31 | NUR ---
RN NOTES Patient's blood sugar checked, 121. No insulin given as per slidong scale
--- NOTE | 2017-11-28 06:32 | NUR ---
RN CLOSING NOTES Patient remains stable. Alert, oriented x 4, very pleasant. Breathing even and unlabored. No complaints as of this time. All needs attended to. All due medications given as ordered. Safety measures in place. Call silva within reach. Bed in low locked position. Will endorse nhi to morning shift RN
[2017-11-28 06:40] LABS: BASOPHILS % (AUTO) 0.3 % (0.0-2.0); EOSINOPHILS % (AUTO) 3.7 % (0.0-6.0); HEMATOCRIT 37 % (39-51); HEMOGLOBIN 12.4 g/dL (13.5-17.5); LYMPHOCYTES # (AUTO) 1.1 /CMM (0.8-4.8); LYMPHOCYTES % (AUTO) 14.9 % (20.0-44.0); MEAN CORPUSCULAR HEMOGLOBIN 32 PG (26.0-33.0); MEAN CORPUSCULAR HGB CONC 34 g/dl (31.0-36.0); MEAN CORPUSCULAR VOLUME 96 fL (80-96); MONOCYTES # (AUTO) 0.9 /CMM (0.1-1.30); MONOCYTES % (AUTO) 11.8 % (2.0-12.0); NEUTROPHILS # (AUTO) 5.3 /CMM (1.8-8.9); NEUTROPHILS % (AUTO) 69.3 % (43.0-81.0); PLATELET COUNT (AUTO) 214 /CMM (150-450); RDW COEFFICIENT OF VARIATION 12.9 (11.5-15.0); RED BLOOD CELL COUNT(AUTO) 3.87 MIL/uL (4.5-6.0); WHITE BLOOD COUNT (AUTO) 7.6 K/uL (4.3-11.0)
[2017-11-28 07:07] LABS: CALCIUM, SERUM 8.3 mg/dL (8.5-10.1); CREATININE 0.8 mg/dL (0.6-1.3); MAGNESIUM 2.3 mg/dL (1.8-2.4)
--- NOTE | 2017-11-28 07:48 | NUR ---
MS/RN NOTES RECEIVED PATIENT IN BED AWAKE AND ORIENTED X4, VERBALLY RESPONSIVE ABLE TO COMMUNICATE AND MAKE NEEDS KNOWN. PATIENT IN NO APPARENT DISTRESS, RESPIRATIONS EVEN AND UNLABORED, ON ROOM AIR. PATIENT COMPLIANTS OF GENERALIZED 8/10 PAIN AND SORE IV TO RIGHT FA. ASSESSED SITE APPEARS INFILTRATED. SOPPED IV HYDRATION AND REMOVED IV. PATIENT NOTED WITH BILATERAL KNEE AND LEFT TOE DRESSING. DISCUSSED PLAN OF CARE WITH PATIENT AND AGREED. WILL CONTINUE TO MONITOR.
[2017-11-28 08:00] VITALS: BP 117/70
[2017-11-28] MEDS: LACTOBACILLUS RHAMNOSUS GG 1 EACH CAP.SPRINK PO SCH (08:48)
[2017-11-28] MEDS: LOSARTAN POTASSIUM 50 MG TABLET PO SCH (08:48)
[2017-11-28 08:49] VITALS: BP 117/70
[2017-11-28] MEDS: GLIMEPIRIDE 4 MG TABLET PO SCH (08:49)
[2017-11-28] MEDS: PANTOPRAZOLE 40 MG TABLET.DR PO SCH (08:49)
[2017-11-28] MEDS: METOPROLOL SUCCINATE 50 MG TAB.SR.24H PO SCH (08:49)
[2017-11-28] MEDS: SILVER SULFADIAZINE CREAM 25 GM TUBE TP SCH (08:54)
--- NOTE | 2017-11-28 15:20 | NUR ---
MS/RN NOTES RE-CHECKED PATIENT'S BLOOD SUGAR LEVELS. BS 205MG/DL COVERED WITH 6 UNITS OF INSULIN. NO S/S OF HYPO/HYPERGLYCEMIA. WILL CONTINUE TO MONITOR.
--- NOTE | 2017-11-28 15:20 | NUR ---
MS/RN NOTES PATIENT COMPLAINING OF DULL GENERALIZED PAIN 810 ON PAIN SCALE LEVEL. ADMINISTERED MORPHINE SULFATE 2MG VIA IV PUSH ORDERED BY MD. PATIENT ASKED TO BE PRE-MEDICATED PRIOR TO WOUND TREATMENT AND DISCHARGE. WILL MONITOR FOR EFFECTIVENESS
--- NOTE | 2017-11-28 15:35 | NUR ---
MS/RN D/C NOTE PATIENT DUE FOR DISCHARGE, ORDERS RECEIVED AND REVIEWED. MEDICATION RECONCILIATION DONE, DISCUSSED DISCHARGE INSTRUCTIONS WITH PATIENT AND FACILITY NURSE [facility] FROM [facility]. DISCHARGE FORMS COMPLETED, SIGNED AND PLACED A COPY IN CHART. IV LEFT IN PLACE DUE TO CONTINUED FLUID REPLACEMENT. PAIN MANAGEMENT PROVIDED PRIOR TO DISCHARGE, WOUND CARE DONE, PICTURES TAKEN AND PLACED IN CHART. BELONGING LIST COMPLETED, SIGNED AND RETURNED TO PATIENT. PATIENT LEFT SOH IN STABLE CONDITION.
== END 2017-11-28 15:44 | DRG 682 ==
LOC: ER 13:14 → TELE1 16:14 → TELE-TD 18:14 → MEDSG1 11-23 08:21 → MEDSG2 11-24 21:37 → MED 11-25 20:47
PROVIDERS: ADMIT Legal Medicine; ATTEND Legal Medicine
PROC: 0SWBXJZ Revision of Synthetic Substitute in Left Hip Joint, External Approach (ICD-10-PCS; principal; 2017-11-22)
PROC: 0HBRXZZ Excision of Toe Nail, External Approach (ICD-10-PCS; 2017-11-24)
DX: N17.9 Acute kidney failure, unspecified (principal); G92 Toxic encephalopathy; T84.021A Dislocation of internal left hip prosthesis, initial encounter; M62.82 Rhabdomyolysis; E87.2 Acidosis; F10.239 Alcohol dependence with withdrawal, unspecified; Y90.0 Blood alcohol level of less than 20 mg/100 ml; B35.1 Tinea unguium; L60.1 Onycholysis; R55 Syncope and collapse; N40.0 Benign prostatic hyperplasia without lower urinary tract symptoms; S90.212A Contusion of left great toe with damage to nail, initial encounter; X58.XXXA Exposure to other specified factors, initial encounter; Y92.009 Unspecified place in unspecified non-institutional (private) residence as the place of occurrence of the external cause; M19.90 Unspecified osteoarthritis, unspecified site; Y79.2 Prosthetic and other implants, materials and accessory orthopedic devices associated with adverse incidents; Y83.8 Other surgical procedures as the cause of abnormal reaction of the patient, or of later complication, without mention of misadventure at the time of the procedure; E11.9 Type 2 diabetes mellitus without complications; Z79.84 Long term (current) use of oral hypoglycemic drugs; W19.XXXA Unspecified fall, initial encounter; I12.9 Hypertensive chronic kidney disease with stage 1 through stage 4 chronic kidney disease, or unspecified chronic kidney disease; E11.22 Type 2 diabetes mellitus with diabetic chronic kidney disease; N18.3 Chronic kidney disease, stage 3 (moderate); I10 Essential (primary) hypertension
CPT/HCPCS: 36415; 70450-TC; 71045-TC; 73020; 73090-TC; 73564-TC; 73700-TC; 80048-TC; 80053-TC; 80076-TC; 80202-TC; 80305; 81000-TC; 82550-TC; 82553-TC; 82962-TC; 83605-TC; 83735-TC; 84100-TC; 84484-TC; 85025-TC; 85730-TC; 86850-TC; 87040-TC; 87081-TC; 87086-TC; 97110-TC; 97530-TC; A4216; A6253; A6402; A6403; C9113; G0480; J0696; J1815; J2270; J2405; J2543; J2704; J3370; J7030; J7040; J7060